=== PATIENT | female | born 1970 | race African-American/Black ===

== ENCOUNTER 2019-05-18 18:37 | Emergency (ER) | payer OTHER ==
[~2019-05-18] VITALS: Ht 157.5 cm; Wt 64.1 kg
[2019-05-18] MEDS ORDERED: OxyCODONE HCL/ACETAMINOPHEN 5-325 MG TABLET PO ONE (19:45)
[2019-05-18] MEDS ORDERED: LIDOCAINE/PF 1% 2 ML VIAL IM ONE (21:45)
[2019-05-18 23:21] VITALS: BP 124/83
[2019-05-18] MEDS ORDERED: CLINDAMYCIN HCL 150 MG CAPSULE PO ONE (23:45)
== END 2019-05-18 23:43 | disposition home or self-care (01) ==
LOC: EMS 18:38
DX: S01.511A Laceration without foreign body of lip, initial encounter (principal); Y04.2XXA Assault by strike against or bumped into by another person, initial encounter; Y93.89 Activity, other specified; Y92.89 Other specified places as the place of occurrence of the external cause; Y99.8 Other external cause status
CPT/HCPCS: 40650; 70450; 70486; 72125; 99284; J3490

== ENCOUNTER 2023-11-10 16:51 | Emergency (ER) | payer OTHER ==
[~2023-11-10] VITALS: Ht 165.1 cm; Wt 68.0 kg
[2023-11-10 17:27] VITALS: TEMP 98.9
[2023-11-10 17:37] LABS: EOSINOPHILS % (AUTO) 0.8 % (1.0-6.0); HEMATOCRIT 40.6 % (36-46); HEMOGLOBIN 13.3 g/dL (12.0-16.0); LYMPHOCYTES # (AUTO) 2.1 K/uL (1.0-4.8); LYMPHOCYTES % (AUTO) 31.8 % (22.0-44.0); MEAN CORPUSCULAR HEMOGLOBIN 29.7 pg (26.0-34.0); MEAN CORPUSCULAR HGB CONC 32.8 G/dL (31.0-37.0); MEAN CORPUSCULAR VOLUME 91 fL (80-100); MONOCYTES # (AUTO) 0.5 K/uL (0.1-1.0); MONOCYTES % (AUTO) 7.9 % (2.0-9.0); NEUTROPHILS # (AUTO) 3.9 K/uL (1.8-7.7); NEUTROPHILS % (AUTO) 58.5 % (40.0-70.0); PLATELET COUNT (AUTO) 287 K/uL (150-450); RED BLOOD CELL COUNT(AUTO) 4.48 MIL/uL (4.00-5.20); RED CELL DISTRIBUTION WIDTH 14.9 % (11.5-14.5); WHITE BLOOD COUNT (AUTO) 6.7 K/uL (4.5-11.0)
[2023-11-10] MEDS: SODIUM CHLORIDE 0.9% 1,000 ML IV ONE (17:48)
[2023-11-10 18:04] LABS: ALANINE AMINOTRANSFERASE 25 U/L (12-78); ALBUMIN 3.8 g/dL (3.4-5.0); ALKALINE PHOSPHATASE 125 U/L (46-116); ANION GAP 11 mmol/L (8-16); ASPARTATE AMINOTRANSFERASE 26 U/L (15-37); BILIRUBIN,TOTAL 0.2 mg/dL (0.1-1.0); CALCIUM, TOTAL 9.3 mg/dL (8.8-10.5); CARBON DIOXIDE 26 mmol/L (22-29); CHLORIDE 105 mmol/L (98-107); CREATININE 0.79 mg/dL (0.60-1.30); GLOMERULAR FILTR. RATE CALC > 60 mL/min (>60); GLUCOSE,RANDOM 116 mg/dL (70-110); POTASSIUM 4.1 mmol/L (3.5-5.1); SODIUM SERUM 142 mmol/L (136-145); TOTAL PROTEIN, SERUM 7.9 g/dL (6.4-8.2); UREA NITROGEN, BLOOD 18 mg/dL (7-18)
[2023-11-10 18:53] LABS: APPEARANCE,URINE CLEAR (CLEAR); BILIRUBIN,URINE NEGATIVE (NEGATIVE); COLOR,URINE YELLOW (YELLOW); GLUCOSE, URINE (UA) NEGATIVE (NEGATIVE); KETONES,URINE NEGATIVE (NEGATIVE); LEUKOCYTE ESTERASE ,URINE TRACE (NEGATIVE); NITRATE,URINE NEGATIVE (NEGATIVE); OCCULT BLOOD,URINE NEGATIVE (NEGATIVE); PH,URINE 5.5 (5.0-8.0); PH,URINE DRUG SCREEN 5.5 (5.0-8.0); PROTEIN,URINE 30-70 mg/dL (NEGATIVE)
[2023-11-10 18:58] LABS: ALCOHOL, URINE DRUG SCREEN NEGATIVE (NEGATIVE); AMPHET/METH SCREEN,URINE POSITIVE (NEGATIVE); BARBITURATE SCREEN, URINE NEGATIVE (NEGATIVE); BENZODIAZEPINES SCREEN,URINE NEGATIVE (NEGATIVE); CANNABINOID SCREEN,URINE POSITIVE (NEGATIVE); COCAINE SCREEN,URINE POSITIVE (NEGATIVE); METHADONE SCREEN, URINE NEGATIVE (NEGATIVE); OPIATE SCREEN,URINE NEGATIVE (NEGATIVE); PHENCYCLIDINE SCREEN,URINE NEGATIVE (NEGATIVE)
[2023-11-10 19:08] LABS: BACTERIA,URINE None Seen /HPF (None Seen); RBC,URINE None Seen /HPF (0-2); SQUAMOUS EPITHELIAL CELL,UR Few /LPF (None Seen); WBC,URINE 0-2 /HPF (0-5)
[2023-11-10] MEDS ORDERED: AZIT250T9 PO (22:42)
[2023-11-10] MEDS: CefTRIAXone 1 GM/DEXTROSE 50 ML IV ONE (23:42)
[2023-11-11 08:27] VITALS: BP 122/75; PULSE 80; RESP 14
[2023-11-20 14:31] LABS: GLUCOMETER DEV NAME(LOC) ER.6; GLUCOSE,POINT OF CARE 123 MG/DL (70-110)
== END 2023-11-11 08:48 | disposition home or self-care (01) ==
LOC: EDUNIT# 16:51 → EMS 17:18
DX: F15.90 Other stimulant use, unspecified, uncomplicated (principal); F14.10 Cocaine abuse, uncomplicated; F17.210 Nicotine dependence, cigarettes, uncomplicated
CPT/HCPCS: 99285; 96365; 70450; 71045; 96361; 80053; 81001; 82962; 84703; 85025; 87040; 36415; 93005; 80307; J0696; 51702

== ENCOUNTER 2025-09-21 00:59 | Emergency (ER) | payer OTHER ==
[~2025-09-21] VITALS: Ht 157.5 cm; Wt 59.1 kg
[2025-09-21 03:31] LABS: PLATELET COUNT (AUTO) 241 K/uL (150-450); RED BLOOD CELL COUNT(AUTO) 4.16 MIL/uL (4.00-5.20); RED CELL DISTRIBUTION WIDTH 13.8 % (11.5-14.5); WHITE BLOOD COUNT (AUTO) 6.2 K/uL (4.5-11.0)
[2025-09-21 03:33] LABS: CREATININE 0.74 mg/dL (0.60-1.30); GLUCOSE,RANDOM 79 mg/dL (70-110); SODIUM SERUM 143 mmol/L (136-145); UREA NITROGEN, BLOOD 21 mg/dL (7-18)
[2025-09-21 03:34] LABS: CALCIUM, TOTAL 8.6 mg/dL (8.8-10.5); GLOMERULAR FILTR. RATE CALC > 60 mL/min (>60)
[2025-09-21] MEDS: BACITRACIN 0.9 GM PACKET OINTMENT TP ONE (04:29)
[2025-09-21 04:30] VITALS: BP 132/71; PULSE 81; RESP 17; TEMP 98.3; O2SAT 100
== END 2025-09-21 05:44 | disposition home or self-care (01) ==
LOC: EMS 00:59
DX: S06.0XAA Concussion with loss of consciousness status unknown, initial encounter (principal); S00.83XA Contusion of other part of head, initial encounter; F10.129 Alcohol abuse with intoxication, unspecified; F31.9 Bipolar disorder, unspecified; F41.9 Anxiety disorder, unspecified; F17.210 Nicotine dependence, cigarettes, uncomplicated; F15.90 Other stimulant use, unspecified, uncomplicated; Z88.0 Allergy status to penicillin; Z86.73 Personal history of transient ischemic attack (TIA), and cerebral infarction without residual deficits; Y04.0XXA Assault by unarmed brawl or fight, initial encounter; Y93.89 Activity, other specified; Y92.89 Other specified places as the place of occurrence of the external cause; Y99.8 Other external cause status; Y90.6 Blood alcohol level of 120-199 mg/100 ml
CPT/HCPCS: 99284; 70450; 80048; 85025; 36415; 70486; 72125; G0480